=== PATIENT | female | born 1995 | race African-American/Black ===

== ENCOUNTER 2017-02-05 18:43 | Emergency (ER) | payer OTHER ==
[2017-02-05 19:23] LABS: #Basophils 0.1 thou/uL (0.0-0.2); #Eosinphils 0.1 thou/uL (0.0-0.7); #Lymphocytes 1.8 thou/uL (1.20-3.40); #Monocytes 0.4 thou/uL (0.11-0.59); #Neutrophils 3.8 thou/uL (1.40-6.50); %Basophils 1.6 % (0.0-1.0); %Eosinophils 2.1 % (0.0-10.0); %Lymphocytes 29.2 % (28.0-48.0); %Monocytes 5.6 % (0.0-4.0); Mean Platelet Volume 7.4 fL (7.4-10.4); Red Blood Cell (RBC) Count 5.22 mill/uL (4.00-5.20); White Blood Cell (WBC) Count 6.2 thou/uL (4.8-10.8)
[2017-02-05 21:04] LABS: Bilirubin Negative (Negative); Blood, Urine Negative (Negative); Glucose, Urine (Dipstick) Negative (Negative); Ketone, Urine Negative (Negative); Nitrite Negative (Negative); Protein, Urine (Dipstick) Negative (Neg-Trace)
--- NOTE | 2017-02-05 22:16 | ULT ---
PELVIC ULTRASOUND INCLUDING TRANSABDOMINAL AND TRANSVAGINAL AND VASCULAR DUPLEX WITH COLOR AND SPECT RAL DOPPLER IMAGIN02/05/17 HISTORY: 21-year-old female with pelvic pain. The patient has an IUD in place within the uterus. The uterus measures 6.1 x 2.7 x 3.9 cm. The left ovary measures 1.7 x 1.9 x 3.6 cm with numerous follicles. The left ovary measures 2.2 x 2.9 x 4.0 c m with numerous follicles, particularly in the periphery of both ovaries. There is no abscess or abn ormal fluid collection. Minimal cul-de-sac fluid. IMPRESSION: Intrauterine device within the uterus. Evidence for polycystic ovaries. Correlate clinically for paras ycystic ovary syndrome. POS: [facility]
[2017-02-05] MEDS ORDERED: cefTRIAXone\\ROCEPHIN 250 MG VIAL ONE (23:05)
[2017-02-05] MEDS ORDERED: Lidocaine 1% PF 5 ML VIAL ONE (23:05)
[2017-02-05] MEDS ORDERED: Azithromycin 250 MG TAB ONE (23:05)
== END 2017-02-05 23:33 | disposition home or self-care (01) ==
LOC: ERS 18:43
DX: N72 Inflammatory disease of cervix uteri (principal)
CPT/HCPCS: 36415; 76856; 81003; 84703; 85025; 87081; 87480; 87491; 87510; 87591; 87660; 96372; J0696; J2001

== ENCOUNTER → 2017-05-15 | Outpatient (CLI) | payer OTHER | LOC: BICRAD 13:32 | PROVIDERS: ATTEND Family Medicine | DX: R07.81 Pleurodynia (principal) ==

== ENCOUNTER 2017-05-17 14:18 | Emergency (ER) | payer OTHER ==
[2017-05-17 15:04] LABS: #Eosinphils 0.2 thou/uL (0.0-0.7); #Lymphocytes 1.8 thou/uL (1.20-3.40); #Monocytes 0.4 thou/uL (0.11-0.59); #Neutrophils 3.6 thou/uL (1.40-6.50); %Basophils 0.4 % (0.0-1.0); %Eosinophils 3.6 % (0.0-10.0); %Lymphocytes 29.8 % (28.0-48.0); %Monocytes 6.8 % (0.0-4.0); %Neutrophils 59.4 % (31.0-61.0); Hemoglobin 13.9 g/dL (12.0-16.0); Mean Corpuscular HGB CONC 32.5 g/dL (32.0-36.0); Mean Corpuscular Volume 92.4 fl (77.0-87.0); Mean Platelet Volume 7.8 fL (7.4-10.4); Platelet Count 251 thou/uL (130-400); RBC Distribution Width 11.8 % (11.5-14.5); Red Blood Cell (RBC) Count 4.64 mill/uL (4.00-5.20); White Blood Cell (WBC) Count 6.1 thou/uL (4.8-10.8)
[2017-05-17 15:32] LABS: BHCG - Serum Negative (NEGATIVE); Pregs Control Background? CLEAR/WHITE (CLR/WHITE); Pregs Control Bar Appear? YES (CONTROL BAR)
[2017-05-17] MEDS ORDERED: Ketorolac Tromethamine 60 MG/2 ML VIAL ONE (16:09)
== END 2017-05-17 16:25 | disposition home or self-care (01) ==
LOC: ERS 14:18
DX: N94.6 Dysmenorrhea, unspecified (principal)
CPT/HCPCS: 36415; 84703; 85025; 96372; J1885

== ENCOUNTER 2017-08-25 15:07 | Outpatient (CLI) | payer OTHER | END 2017-08-25 15:08 | disposition home or self-care (01) | LOC: BICULT 15:07 | PROVIDERS: ATTEND Family Medicine | DX: R10.2 Pelvic and perineal pain (principal); N85.8 Other specified noninflammatory disorders of uterus; Z97.5 Presence of (intrauterine) contraceptive device | CPT/HCPCS: 76856 ==